=== PATIENT | female | born 1945 | race Hispanic/Latino ===

== ENCOUNTER 2018-03-04 08:28 | Day surgery (SDC) | payer MEDICARE ==
[2018-03-04] VITALS (8 sets, daily range): BP systolic 99–129; BP diastolic 43–61
[~2018-03-04] VITALS: Ht 157.5 cm; Wt 68.0 kg
[~2018-03-04 08:28] MED LIST: SODIUM CHLORIDE 0.9% 1000ML 1,000 ML IV ONE
[2018-03-04] MEDS ORDERED: FOLIC ACID PEG (11:12)
[2018-03-04] MEDS ORDERED: ACET-2247 PEG (11:12)
[2018-03-04] MEDS ORDERED: FURO20TA4 PEG (11:12)
[2018-03-04] MEDS ORDERED: ATOR10 PEG (11:12)
[2018-03-04] MEDS ORDERED: CALCIUM+D PEG (11:12)
[2018-03-04] MEDS ORDERED: PANT40SU PEG (11:12)
[2018-03-04] MEDS ORDERED: PHEN50 PEG (11:12)
[2018-03-04] MEDS ORDERED: MENT113O8 TP (11:12)
[2018-03-04] MEDS ORDERED: CHOLESTYRAMINE PEG (11:12)
[2018-03-04] MEDS ORDERED: CYAN10007 IJ (11:12)
[2018-03-04] MEDS ORDERED: DEXT1DRO8 OP (11:12)
== END 2018-03-04 12:29 | disposition home or self-care (01) ==
LOC: DAH 08:28
PROVIDERS: ATTEND Internal Medicine Gastroenterology
DX: D12.2 Benign neoplasm of ascending colon (principal); K52.9 Noninfective gastroenteritis and colitis, unspecified; K21.9 Gastro-esophageal reflux disease without esophagitis; J30.9 Allergic rhinitis, unspecified; E78.5 Hyperlipidemia, unspecified; G40.909 Epilepsy, unspecified, not intractable, without status epilepticus; Z86.73 Personal history of transient ischemic attack (TIA), and cerebral infarction without residual deficits; Z98.890 Other specified postprocedural states; Z79.899 Other long term (current) drug therapy; I67.1 Cerebral aneurysm, nonruptured; K57.30 Diverticulosis of large intestine without perforation or abscess without bleeding; K64.9 Unspecified hemorrhoids
CPT/HCPCS: 45380; 88305; 93005; A4606; J7030

== ENCOUNTER → 2018-06-24 | Outpatient (CLI) | payer MEDICARE ==
[~2018-06-24] MED LIST changes: +ACET-2247 PEG; +ATOR10 PEG; +CALCIUM+D PEG; +CHOLESTYRAMINE PEG; +CYAN10007 IJ; +DEXT1DRO8 OP; +DiphenhydrAMINE HCL 50 MG/ML VIAL ONE; +FOLIC ACID PEG; +FURO20TA4 PEG; +IOHEXOL-350 75 ML VIAL IV ONE; +MENT113O8 TP; +PANT40SU PEG; +PHEN50 PEG; -SODIUM CHLORIDE 0.9% 1000ML 1,000 ML IV ONE
== END | disposition home or self-care (01) ==
LOC: RAH 07:28
PROVIDERS: ATTEND Internal Medicine Gastroenterology
DX: K44.9 Diaphragmatic hernia without obstruction or gangrene (principal); K57.90 Diverticulosis of intestine, part unspecified, without perforation or abscess without bleeding; Z90.49 Acquired absence of other specified parts of digestive tract
CPT/HCPCS: 74178; J1200; Q9967